=== PATIENT | female | born 1975 | race Caucasian/White ===

== ENCOUNTER → 2018-07-10 12:43 | Outpatient (CLI) | payer OTHER, SELFPAY ==
--- NOTE | 2018-07-10 | DI.MRI.S_ITS ---
PROCEDURE: MR CERVICAL SPINE WO/W CON INDICATIONS: PAIN IN RIGHT SHOULDER TECHNIQUE: Noncontrast sagittal T1 spin echo and T2 fast spin echo, sagittal STIR, foraminal oblique sagittal T2 fast spin echo, axial gradient echo or T2 fast spin echo through the cervical spine. After the administration of contrast, axial and sagittal T1 spin echo with fat saturation through the cervical spine. COMPARISON: None. FINDINGS: Image quality: Excellent. Alignment and curvature: There is normal bony alignment. Marrow: Marrow is normal in overall signal, without suspicious enhancement. Spinal cord: Visualized spinal cord has normal size and signal. No cerebellar tonsillar herniation. No abnormal intramedullary enhancement. Paraspinous soft tissues: No paravertebral masses or suspicious enhancement. C2-3: Loss of the signal. Minimal, diffuse disc bulge. No central stenosis. No neural foraminal narrowing. No neural impingement. C3-4: Loss of the signal. Mild, diffuse disc bulge. No central stenosis. No neural foraminal narrowing. No neural impingement. C4-5: Loss of disc signal. Mild, diffuse disc bulge. No central stenosis. No neural foraminal narrowing. No neural impingement. C5-6: Loss of disc signal. Mild, diffuse disc bulge. Small left central disc protrusion. Mild narrowing of the central canal. No neural foraminal narrowing. No neural impingement. Focal high intensity zone is noted in the left central posterior annulus compatible with a fissure. C6-7: Normal appearance. C7-T1: Normal appearance. IMPRESSION: 1. Mild multilevel degenerative disc disease. 2. Small left central C5-C6 disc protrusion. 3. Mild C5-C6 central canal narrowing. 4. No neural foraminal narrowing. 5. No neural impingement. 6. C5-C6 disc annulus fissure. Dictated by: Kitty Fam MD, PhD on 07/10/2018 at 17:37 Approved by: Kitty Fam MD, PhD on 07/10/2018 at 17:40
--- NOTE | 2018-07-10 | DI.MRI.S_ITS ---
PROCEDURE: MR SHOULDER RT WO/W CON INDICATIONS: PAIN IN RIGHT SHOULDER TECHNIQUE: Noncontrast oblique coronal T1 spin echo and T2 fast spin echo with fat saturation, oblique sagittal T1 spin echo and T2 fast spin echo with fat saturation, axial T1 spin echo and T2 fast spin echo with fat saturation through the shoulder. Post-contrast oblique coronal, oblique sagittal, and axial T1 spin echo with fat saturation through the shoulder. COMPARISON: None. FINDINGS: Image quality: Diagnostic. Rotator cuff: There is no full-thickness or high-grade partial-thickness tear of the rotator cuff. However, there is mild tendinopathy at the junction of the supraspinatus and infraspinatus tendons without significant partial-thickness tearing. The teres minor and subscapularis tendons are intact. There is no significant atrophy of the rotator cuff muscles. Bones and bursae: No acute fracture, dislocation, or suspicious osseous lesion is identified involving the osseous structures of the right shoulder. There is no suspicious enhancement of the bone. No significant degenerative changes of the glenohumeral joint is present. There is no glenohumeral joint effusion. There are mild degenerative changes of the acromio clavicular joint with downsloping of the lateral acromion. No significant fluid is contained within the subacromial subdeltoid bursa. However, there is thickening of the bursa. Capsule and soft tissues: Evaluation of the labrum and the glenohumeral ligaments is difficult without intra-articular contrast. No acute injuries are suspected involving the glenohumeral ligaments. A small tear along the posterosuperior labrum is suspected extending from the 12 o'clock position to the 2 o'clock position. No detached labral fragment or large paralabral cysts are evident. The long head of the biceps tendon is normally positioned within the bicipital groove and is otherwise intact and unremarkable. No suspicious soft tissue enhancement or soft tissue masses are evident. No fluid collections are evident, either. IMPRESSION: 1. Mild supraspinatus and infraspinatus tendinopathy without significant tearing. 2. Mild degenerative changes of the acromioclavicular joint. 3. Small posterosuperior labral tear suspected to the knee for better characterization utilizing MR arthrography may be determined clinically. 4. No suspicious areas of soft tissue or bony enhancement. There are no soft tissue or bony masses. Dictated by: Toby Zhu M.D. on 07/10/2018 at 15:09 Approved by: Toby Zhu M.D. on 07/10/2018 at 15:15
== END ==
PROVIDERS: PCP Family Medicine; Visit Provider Family Medicine
DX: M25.511 Pain in right shoulder (principal); M19.011 Primary osteoarthritis, right shoulder; M50.31 Other cervical disc degeneration, high cervical region; M50.222 Other cervical disc displacement at C5-C6 level; M48.02 Spinal stenosis, cervical region
CPT/HCPCS: 72156; 73223; A9579

== ENCOUNTER → 2018-09-27 18:56 | Outpatient (CLI) | payer OTHER, SELFPAY ==
--- NOTE | 2018-09-27 18:58 | DI.MRI.S_ITS ---
PROCEDURE: MR HEAD/BRAIN WO CON INDICATIONS: VISUAL DISTURBANCES TECHNIQUE: Noncontrast axial T1 spin echo, axial T2 fast spin echo, sagittal and axial FLAIR, coronal T2 fast spin echo, axial gradient echo, axial diffusion and ADC through the brain. COMPARISON: None. FINDINGS: Image quality: Excellent. CSF Spaces: Basal cisterns are patent. No extra-axial fluid collections. Ventricles are normal in size and shape. Brain: No intracranial masses or hemorrhage. Tsai/white matter interface is normal. Brainstem appears normal. Diffusion-weighted images demonstrate no acute ischemic insult. No chronic ischemic insults. Normal intravascular flow voids are present. Skull and face: Calvarium has normal marrow signal. Orbits appear normal. Sinuses: Sinuses and mastoids are clear. IMPRESSION: No acute process. No explanation for visual disturbance. No recent infarct. Dictated by: Suzan Gao M.D. on 09/30/2018 at 8:35 Approved by: Suzan Gao M.D. on 09/30/2018 at 8:37
== END ==
PROVIDERS: PCP Family Medicine; Visit Provider General Practice
DX: H53.9 Unspecified visual disturbance (principal)
CPT/HCPCS: 70551

== ENCOUNTER 2020-11-24 16:45 | Emergency (ER) | payer OTHER, SELFPAY ==
[2020-11-24 17:11] VITALS: BP 132/80; PULSE 120; RESP 18; TEMP 37.1; O2SAT 99
[2020-11-24 18:15] LABS: Add Manual Diff / Slide Review NO; Basophils Absolute Auto 0 /uL (0-100); Basophils Percent Auto 0.4 % (0-2); Eosinophils Absolute Auto 100 /uL (0-450); Eosinophils Percent Auto 1.3 % (2-4); Hematocrit 41.7 % (36-46); Hemoglobin 14.3 g/dL (12.0-16.0); Lymphocytes Absolute Auto 1300 /uL (1100-4500); Lymphocytes Percent Auto 16.9 % (25-40); Mean Corpuscular HGB Conc 34.2 % (30-36); Mean Corpuscular Hemoglobin 29.7 PG (26-34); Monocytes Absolute Auto 500 /uL (0-900); Neutrophils Absolute Auto 5900 /uL (1500-7000); Neutrophils Percent Auto 75.4 % (50-75); Platelet Count 152 X10^3/uL (150-400); Red Cell Distribution Width 12.7 % (11.6-14.8); White Blood Cell Count 7.8 X10^3/uL (4.5-11.0)
[2020-11-24 18:31] LABS: Creatine Kinase 57 U/L (30-135)
[2020-11-24 18:33] LABS: Alanine Aminotransferase 17 IU/L (<35); Albumin 4.5 g/dL (3.5-5.0); Albumin Globulin Ratio 1.4 (1.0-2.8); Alkaline Phosphatase 53 U/L (38-126); Aspartate Aminotransferase 27 IU/L (14-36); BUN Creatinine Ratio 16.7 (6-22); Bilirubin Total 0.6 mg/dL (0.2-1.3); Blood Urea Nitrogen 11 mg/dL (7-17); Calcium 9.5 mg/dL (8.4-10.2); Carbon Dioxide 25 mmol/L (22-32); Chloride 104 mmol/L (98-107); Estimated Glomerular Filt Rate > 60.0 mL/min (>60); Globulin 3.2 g/dL (1.7-4.1); Glucose 96 mg/dL (70-100); HEMOLYSIS < 15 (0-50); Lipase 74 U/L (23-300); Potassium 4.2 mmol/L (3.4-5.1); Sodium 137 mmol/L (137-145); Total Protein 7.7 g/dL (6.3-8.2)
[2020-11-24 18:44] LABS: Troponin I < 0.012 ng/mL (0.01-0.034)
--- NOTE | 2020-11-24 19:29 | DI.CT.S_ITS ---
PROCEDURE: CT ABDOMEN PELVIS W CON INDICATIONS: LUQ pain hx of speenic cyst TECHNIQUE: After the administration of intravenous contrast, axial sections acquired from the lung bases to the pubic symphysis. Coronal and sagittal reformats were performed. For radiation dose reduction, the following was used: automated exposure control, adjustment of mA and/or kV according to patient size. COMPARISON: None. FINDINGS: Image quality: Excellent. Lung bases: Unremarkable. Heart: No significant findings. ABDOMEN: Liver: Unremarkable. Gallbladder: Unremarkable. Biliary ducts: Unremarkable. Pancreas: Unremarkable. Spleen: The spleen contains numerous small and large splenic cysts, several of which have thin bands of calcification along their borders. No hemorrhage into a cyst is found. Adrenal Glands: Unremarkable. Kidneys and Ureters: Unremarkable. Stomach and Bowel: Stomach, small bowel loops, and colon are unremarkable. Peritoneum: No abnormal intraperitoneal fluid. No free air. Ventral Wall: No hernias. Abdominal Nodes: No retroperitoneal or mesenteric adenopathy by size criteria. Vessels: Aorta and inferior vena cava are normal in size. PELVIS: Pelvic Organs: Unremarkable. Bladder: Unremarkable. Pelvic Nodes: No enlarged lymph nodes. Miscellaneous: No hernias are seen. Bones: Unremarkable. IMPRESSION: Etiology of left upper quadrant pain is not identified. Numerous chronic splenic cysts are present, ranging in size from several mm to 8.8 cm. A comparison study is not available for review to establish waste/materials exchange specialist time. Given the current symptomatology and indicated history of knowledge of the splenic cyst it is strongly recommended that the patient obtain the comparison prior CT or MR scanning for review so that chronicity of the abnormalities can be further documented and any change that would indicate presence of infection or neoplasm could be identified. Dictated by: Michael Jones M.D. on 11/24/2020 at 20:13 Approved by: Michael Jones M.D. on 11/24/2020 at 20:16
--- NOTE | 2020-11-24 19:35 | ED_ITS ---
HPI - General Adult General Chief complaint: Abdominal Pain Stated complaint: LUQ pain Time Seen by Provider: 11/24/20 19:34 Source: patient Mode of arrival: Ambulatory History of Present Illness HPI narrative: Patient is a 45-year-old female with a history of a splenic cyst that has required surgical intervention in the past. This was a couple years ago that this occurred. She states that over the past several weeks/months she has had increasing discomfort to her left upper abdomen which feels very similar to when she was diagnosed with a cyst. She states that last evening that discomfort became much worse and she was concerned that the cyst was back. Related Data Home Medications Medication Instructions Recorded Confirmed No Known Home Medications 11/24/20 11/24/20 Allergies Allergy/AdvReac Type Severity Reaction Status Date / Time latex [LATEX] Allergy Intermediate RASH, Verified 11/24/20 17:13 SWELLING copper [COPPER] Allergy Unknown RASH Verified 11/24/20 17:13 Penicillins [PENICILLINS] Allergy Unknown RASH Verified 11/24/20 17:13 Review of Systems Constitutional Constitutional: Denies headache(s) ENT Ears, Nose, Mouth, and Throat: Denies headache(s) Cardiovascular Cardiovascular: Denies chest pain Respiratory Respiratory: Denies system reviewed and no additional complaints, except as documented Gastrointestinal Gastrointestinal: Reports system reviewed and no additional complaints, except as documented, Denies change in bowel habits and Denies vomiting Genitourinary Genitourinary: Denies dysuria Musculoskeletal Musculoskeletal: Reports system reviewed and no additional complaints, except as documented Integumentary/Breasts Skin/Breast: Reports system reviewed and no additional complaints, except as documented Neurologic Neurologic: Denies headache(s) Psychiatric Psychiatric: Reports system reviewed and no additional complaints, except as documented Endocrine Endocrine: Reports system reviewed and no additional complaints, except as documented Hematologic/Lymphatic On Anticoagulants: No Allergic/Immunologic Allergic/Immunologic: Reports system reviewed and no additional complaints, except as documented Patient History Medical History Splenic cyst Social History Smoking Status: Never smoker Smoking Status: Never smoker alcohol intake frequency: holidays/special occasions only Substance Use Type: does not use Exam Initial Vital Signs Initial Vital Signs: Vital Signs Temperature 98.7 F 11/24/20 17:11 Pulse Rate 120 H 11/24/20 17:11 Respiratory Rate 18 11/24/20 17:11 Blood Pressure 132/80 11/24/20 17:11 Pulse Oximetry 99 11/24/20 17:11 Const General: cooperative, healthy appearing, comfortable and well developed [facility] Head: normal to inspection and normocephalic Eyes General: appearance normal, both eyes and all related structures Neck Neck: normal visual inspection Resp Effort & Inspection: normal respiratory effort Cardio Rate: regular rate GI Inspection: normal to inspection and non-distended Palpation: No firm, No mass and tender (Left upper quadrant) Back/Spine/Pelvis Back: normal to inspection Skin General: no rashes or lesions noted Neuro General: patient alert, patient awake and patient oriented x3 Extrem General: normal to inspection Psych Appearance: grossly normal and well kempt Course Orders Ordered: ED Orders 11/24/20 18:00 Complete Blood Count AUTO DIFF Stat Comprehensive Metabolic Panel Stat Lipase Stat Troponin & CK Cardiac Panel Stat 11/24/20 19:29 CT abdomen pelvis w con Stat Vital Signs Vital signs: Vital Signs - 8 hr 11/24/20 20:32 11/24/20 20:35 Pulse Rate 73 75 Respiratory Rate 32 H 16 Blood Pressure 115/75 Pulse Oximetry 100 Medical Decision Making Lab Data Lab results reviewed: Yes I reviewed the patient's lab results. Result diagrams: 11/24/20 18:00 11/24/20 18:00 Labs: Lab Results 11/24/20 11/24/20 11/24/20 Range/Units 18:00 18:00 18:00 WBC 7.8 (4.5-11.0) X10^3/uL RBC 4.80 (4.0-5.2) X10^6/uL Hgb 14.3 (12.0-16.0) g/dL Hct 41.7 (36-46) % MCV 87.0 (80-100) fL MCH 29.7 (26-34) PG MCHC 34.2 (30-36) % RDW 12.7 (11.6-14.8) % Plt Count 152 (150-400) X10^3/uL Neut % (Auto) 75.4 H (50-75) % Lymph % (Auto) 16.9 L (25-40) % [place] % (Auto) 6.0 (3-14) % Eos % (Auto) 1.3 L (2-4) % Baso % (Auto) 0.4 (0-2) % Neut # (Auto) 5900 (1591-3400) /uL Lymph # (Auto) 1300 (9726-0508) /uL [place] # (Auto) 500 (0-900) /uL Eos # (Auto) 100 (0-450) /uL Baso # (Auto) 0 (0-100) /uL Sodium 137 (137-145) mmol/L Potassium 4.2 (3.4-5.1) mmol/L Chloride 104 (98-107) mmol/L Carbon Dioxide 25 (22-32) mmol/L BUN 11 (7-17) mg/dL Creatinine 0.66 (0.52-1.04) mg/dL Estimated GFR > 60.0 (>60) mL/min BUN/Creatinine Ratio 16.7 (6-22) Glucose 96 (70-100) mg/dL Calcium 9.5 (8.4-10.2) mg/dL Total Bilirubin 0.6 (0.2-1.3) mg/dL AST 27 (14-36) IU/L ALT 17 (<35) IU/L Alkaline Phosphatase 53 (38-126) U/L Total Creatine Kinase 57 (30-135) U/L CK-MB (CK-2) TNP CK-MB (CK-2) Rel Index TNP Troponin I < 0.012 (0.01-0.034) ng/mL Total Protein 7.7 (6.3-8.2) g/dL Albumin 4.5 (3.5-5.0) g/dL Globulin 3.2 (1.7-4.1) g/dL Albumin/Globulin Ratio 1.4 (1.0-2.8) Lipase 74 (23-300) U/L Imaging Data CT scan - abdomen/pelvis: Radiologist's Impression: [address] [id number] Scan ReportSigned Patient: Zuleika Medeiros EMR#: [id number]: [id number]:[id number]/Sex: 45 / FDate of Service: 11/24/20Loc: EDAccession Number: [id number] Procedure: CT abdomen pelvis w con Ordering Provider: Ramandeep Reza D.O. PROCEDURE: CT ABDOMEN PELVIS W CON INDICATIONS: LUQ pain hx of speenic cyst TECHNIQUE: After the administration of intravenous contrast, axial sections acquired from the lung bases to the pubic symphysis. Coronal and sagittal reformats were performed. For radiation dose reduction, the following was used: automated exposure control, adjustment of mA and/or kV according to patient size. COMPARISON: None. FINDINGS: Image quality: Excellent. Lung bases: Unremarkable. Heart: No significant findings. ABDOMEN: Liver: Unremarkable. Gallbladder: Unremarkable. Biliary ducts: Unremarkable. Pancreas: Unremarkable. Spleen: The spleen contains numerous small and large splenic cysts, several of which have thin bands of calcification along their borders. No hemorrhage into a cyst is found. Adrenal Glands: Unremarkable. Kidneys and Ureters: Unremarkable. Stomach and Bowel: Stomach, small bowel loops, and colon are unremarkable. Peritoneum: No abnormal intraperitoneal fluid. No free air. Ventral Wall: No hernias. Abdominal Nodes: No retroperitoneal or mesenteric adenopathy by size criteria. Vessels: Aorta and inferior vena cava are normal in size. PELVIS: Pelvic Organs: Unremarkable. Bladder: Unremarkable. Pelvic Nodes: No enlarged lymph nodes. Miscellaneous: No hernias are seen. Bones: Unremarkable. IMPRESSION: Etiology of left upper quadrant pain is not identified. Numerous chronic splenic cysts are present, ranging in size from several mm to 8.8 cm. A comparison study is not available for review to establish belt changer time. Given the current symptomatology and indicated history of knowledge of the splenic cyst it is strongly recommended that the patient obtain the comparison prior CT or MR scanning for review so that chronicity of the abnormalities can be further documented and any change that would indicate presence of infection or neoplasm could be identified. Dictated by: Michael Jones M.D. on 11/24/2020 at 20:13 Approved by: Michael Jones M.D. on 11/24/2020 at 20:16 ECG Data Attestation: I personally reviewed and interpreted this ECG as follows: Interpretation: Sinus rhythm Ventricular rate 98 Sinus arrhythmia Normal MN interval Normal QRS Normal QTC No ST T wave changes MDM Narrative Medical decision making narrative: Labs are unremarkable, EKG is unremarkable, CT scan shows multiple splenic cysts. Unsure if this is the cause of her discomfort however that is the potential given her history. I feel that no surgical intervention is needed today. I did discuss the CT scan with her and liver contact her primary doctor to discuss further workup in any specialist referrals. She was given return precautions and follow-up instructions. She expressed understanding and agreement. Discharge Plan Departure Patient Disposition: Home Clinical Impression: Cyst of spleen, Abdominal pain Instructions: DI for Abdominal Pain-Adult Activity Restrictions/Additional Instructions: I do recommend that you contact your primary doctor about the cysts that were seen on the CT scan today. Your most likely going to do need follow-up scans to continue to evaluate for potential growth. The rest of your labs in the rest of the CT scan were unremarkable. No restrictions on your diet. Please return to the emergency department for any new or worsening symptoms. Prescriptions: No Action No Known Home Medications RF: 0 Referrals: Bev Moreno MD [Primary Care Provider] -
[2020-11-24 20:32] VITALS: PULSE 73; RESP 32
[2020-11-24 20:35] VITALS: BP 115/75; PULSE 75; RESP 16; O2SAT 100
== END 2020-11-24 20:59 | disposition home or self-care (01) ==
PROVIDERS: Emergency Medicine; Emergency Provider Emergency Medicine; PCP Family Medicine
DX: D73.4 Cyst of spleen (principal); R10.12 Left upper quadrant pain
CPT/HCPCS: 36415; 74177; 80053; 82550; 83690; 84484; 85025; 93005; 99283; 99284

== ENCOUNTER 2020-11-26 15:32 | Emergency (ER) | payer OTHER, SELFPAY ==
[2020-11-26] VITALS (11 sets, daily range): BP systolic 101–111; BP diastolic 60–68; PULSE 67–91; RESP 16–18; TEMP 37.1; O2SAT 97–100; BMI 23.6
--- NOTE | 2020-11-26 16:04 | DI.CT.S_ITS ---
PROCEDURE: CT ABDOMEN PELVIS W CON INDICATIONS: Pain LUQ , h/o splenic cysts, worsening pain. TECHNIQUE: After the administration of intravenous contrast, axial sections acquired from the lung bases to the pubic symphysis. Coronal and sagittal reformats were performed. For radiation dose reduction, the following was used: automated exposure control, adjustment of mA and/or kV according to patient size. COMPARISON: [facility], CT, CT ABDOMEN PELVIS W CON, 11/24/2020, 19:38. FINDINGS: Image quality: Excellent. Lung bases: Unremarkable. Heart: No significant findings. ABDOMEN: Liver: There is hypoattenuation of the liver consistent with fatty infiltration with focal fatty infiltration noted in the anterior left hepatic lobe. Gallbladder: Unremarkable. Biliary ducts: Unremarkable. Pancreas: Unremarkable. Spleen: The spleen is enlarged, measuring approximately 12.5 x 11.5 x 7.6 cm. Numerous splenic cysts are redemonstrated, similar in size to the recent CT. These include a large cyst superiorly in the spleen measuring up to 8.2 x 6.5 x 7.0 cm with small foci of calcifications along the cyst wall. A lobulated cyst more inferiorly within the spleen measures up to 7.9 x 5.9 x 7.1 cm. Numerous additional smaller cysts are also demonstrated more superiorly within the spleen. No definite solid mass is identified but evaluation of the smaller cysts is limited due to their sizes. Adrenal Glands: Unremarkable. Kidneys and Ureters: Unremarkable. Stomach and Bowel: Stomach, small bowel loops, and colon are unremarkable. There is a small amount of free fluid in the pelvis which is nonspecific and appears within physiologic limits Peritoneum: No abnormal intraperitoneal fluid. No free air. Ventral Wall: No hernias. Abdominal Nodes: No retroperitoneal or mesenteric adenopathy by size criteria. Vessels: Aorta and inferior vena cava are normal in size. PELVIS: Pelvic Organs: The uterus is surgically absent. Ovaries appear within normal size limits. There is a peripherally enhancing cyst within the left ovary measuring up to 1.8 cm likely representing a physiologic cyst. Bladder: Unremarkable. Pelvic Nodes: No enlarged lymph nodes. Miscellaneous: No hernias are seen. Bones: Unremarkable. IMPRESSION: 1. Multiple splenic cysts appears similar in size to the recent prior study. These include a peripherally calcified large cyst superiorly within the spleen. The findings are nonspecific but suggestive of possible hydatid cysts related to prior infection. The differential includes splenic neoplasms although these are considered less likely. Recommend correlation clinically. Dictated by: Mina Issa M.D. on 11/26/2020 at 17:08 Approved by: Mina Issa M.D. on 11/26/2020 at 17:15
[2020-11-26 16:36] LABS: Add Manual Diff / Slide Review NO; Basophils Absolute Auto 0 /uL (0-100); Basophils Percent Auto 0.6 % (0-2); Eosinophils Absolute Auto 200 /uL (0-450); Eosinophils Percent Auto 3.7 % (2-4); Hematocrit 39.3 % (36-46); Lymphocytes Absolute Auto 1400 /uL (1100-4500); Lymphocytes Percent Auto 24.2 % (25-40); Mean Corpuscular HGB Conc 33.1 % (30-36); Mean Corpuscular Volume 87.7 fL (80-100); Monocytes Absolute Auto 400 /uL (0-900); Neutrophils Absolute Auto 3800 /uL (1500-7000); Neutrophils Percent Auto 64.5 % (50-75); Platelet Count 156 X10^3/uL (150-400); Red Blood Cell Count 4.48 X10^6/uL (4.0-5.2); Red Cell Distribution Width 12.6 % (11.6-14.8); White Blood Cell Count 5.9 X10^3/uL (4.5-11.0)
[2020-11-26 16:44] LABS: Alanine Aminotransferase 16 IU/L (<35); Albumin 4.5 g/dL (3.5-5.0); Albumin Globulin Ratio 1.5 (1.0-2.8); Alkaline Phosphatase 48 U/L (38-126); Aspartate Aminotransferase 25 IU/L (14-36); Bilirubin Total 0.6 mg/dL (0.2-1.3); Blood Urea Nitrogen 11 mg/dL (7-17); Calcium 9.3 mg/dL (8.4-10.2); Carbon Dioxide 24 mmol/L (22-32); Chloride 105 mmol/L (98-107); Estimated Glomerular Filt Rate > 60.0 mL/min (>60); Globulin 3.1 g/dL (1.7-4.1); Glucose 96 mg/dL (70-100); HEMOLYSIS 26 (0-50); Lipase 99 U/L (23-300); Potassium 4.1 mmol/L (3.4-5.1); Sodium 137 mmol/L (137-145); Total Protein 7.6 g/dL (6.3-8.2)
--- NOTE | 2020-11-26 18:08 | ED_ITS ---
HPI - Abdominal Pain General Chief Complaint: Abdominal Pain Stated Complaint: spleen has cyst on it, pain with breathing Time Seen by Provider: 11/26/20 18:01 Source: patient Mode of arrival: Family Vehicle Limitations: no limitations History of Present Illness HPI narrative: 45-year-old female nonsmoker with history of spleen CIS returns for repeat evaluation of persistent pain. She initially had symptoms consisting abdominal pain with some nausea in 2005 and the workup demonstrated a large splenic cyst and she was treated by surgical Oncology at the [facility] and she reports 2 L of fluid was drained. She started developing left upper quadrant and flank pain a few days ago and this reminded her of prior episode of splenic cyst. She has significantly worsening pain with motion and improvement with rest. She states that sharp and stabbing and at times it 10/10. She was seen and evaluated a few days ago here and had a CT which noted a redemonstration of the cyst, patient was given pain meds and encouraged to follow up. She returns, stating that the symptoms are no worse but they are certainly not better and is affecting her ability to function at home. Related Data Home Medications Medication Instructions Recorded Confirmed No Known Home Medications 11/24/20 11/24/20 Allergies Allergy/AdvReac Type Severity Reaction Status Date / Time latex [LATEX] Allergy Intermediate RASH, Verified 11/26/20 15:54 SWELLING copper [COPPER] Allergy Unknown RASH Verified 11/26/20 15:54 Penicillins [PENICILLINS] Allergy Unknown RASH Verified 11/26/20 15:54 Review of Systems Constitutional Constitutional: Denies chills, Denies fatigue, Denies fever(s), Denies frequent falls, Denies lethargy and Denies weakness Eyes Eyes: Denies change in vision, Denies eye discharge, Denies irritation and Denies loss of vision ENT Ears, Nose, Mouth, and Throat: Denies change in voice, Denies dizziness, Denies neck pain, Denies sore throat and Denies throat swelling Cardiovascular Cardiovascular: Denies chest pain, Denies irregular heart rhythm, Denies lightheadedness, Denies palpitations, Denies dyspnea, Denies dyspnea on exertion and Denies orthopnea Respiratory Respiratory: Denies cough, Denies dyspnea, Denies dyspnea on exertion and Denies wheezing Gastrointestinal Gastrointestinal: Reports as per HPI, Reports abdominal pain, Denies change in bowel habits, Denies diarrhea, Denies nausea and Denies vomiting Musculoskeletal Musculoskeletal: Denies neck pain and Denies numbness Integumentary/Breasts Skin/Breast: Denies pruritus, Denies erythema, Denies rash and Denies wounds Neurologic Neurologic: Denies behavioral changes, Denies confusion, Denies dizziness, Denies frequent falls, Denies loss of vision, Denies numbness and Denies weakness Psychiatric Psychiatric: Denies anxiety, Denies behavioral changes, Denies confusion, Denies depression, Denies homicidal ideation and Denies suicidal ideation Endocrine Endocrine: Denies fatigue, Denies flushing and Denies palpitations Hematologic/Lymphatic Hematologic/Lymphatic: Denies easy bruising Allergic/Immunologic Allergic/Immunologic: Denies urticaria, Denies throat swelling and Denies wheezing Patient History Medical History Splenic cyst Social History Smoking Status: Never smoker Smoking Status: Never smoker alcohol intake frequency: holidays/special occasions only Substance Use Type: does not use Exam Narrative Exam Narrative: GENERAL: [45] year old patient appears stated age. Well- developed patient, in obvious distress, rubbing her upper abdomen, anxious and tearful HEAD: Atraumatic. Normocephalic. EYES: Pupils equal round and reactive. Extraocular motions intact. No scleral icterus. No injection or drainage. ENT: Nose without bleeding, purulent drainage. Throat without erythema, tonsillar hypertrophy or exudate. Airway patent. NECK: Trachea midline. Non tender CARDIOVASCULAR: Regular rate and rhythm without murmurs, gallops, or rubs. RESPIRATORY: Clear to auscultation. Breath sounds equal bilaterally. No wheezes, rales, or rhonchi. GASTROINTESTINAL: Abdomen soft, tender in the left upper quadrant, nondistended. Bowel sounds present in all 4 quadrants EXTREMITIES: No edema or joint tenderness. BACK: Nontender without deformity or crepitance. No flank tenderness. NEURO: AOx3. SKIN: No rash or erythema of visible areas Initial Vital Signs Initial Vital Signs: Vital Signs Temperature 98.7 F 11/26/20 15:54 Pulse Rate 91 H 11/26/20 15:54 Respiratory Rate 18 11/26/20 15:54 Blood Pressure 109/68 11/26/20 15:54 Pulse Oximetry 99 11/26/20 15:54 Course Orders Ordered: Discontinued Medications Sodium Chloride (Normal Saline 0.9%) 1,000 mls @ 1,000 mls/hr IV BOLUS ONE Stop: 11/26/20 22:22 Last Infusion: 11/26/20 23:37 Dose: 0 mls/hr Documented by: Admin: 11/26/20 21:31 Dose: 1,000 mls/hr Documented by: ALEKSANDRA Consultations Consultation #1: Discussion with Dr. Delgado (general surgery). We have reviewed the case including images, labs and history and recommendation is to reassure, pain control, return precautions and follow-up with his office as planned Consultation #2: Call to surgical services at [facility]. They have reviewed images, history and have very similar recommendations as above. No indication for transfer, urgent or emergent procedure. Return precautions, follow-up. They took patient's information and will related to scheduling to get her seen sooner rather than later Vital Signs Vital signs: Vital Signs - 8 hr 11/26/20 21:31 11/26/20 23:42 Pulse Rate 77 68 Respiratory Rate 16 18 Blood Pressure 103/60 104/60 Pulse Oximetry 97 98 MDM - Abdominal Pain Lab Data Result diagrams: 11/26/20 16:24 11/26/20 16:24 Labs: Lab Results 11/26/20 11/26/20 Range/Units 16:24 16:24 WBC 5.9 (4.5-11.0) X10^3/uL RBC 4.48 (4.0-5.2) X10^6/uL Hgb 13.0 (12.0-16.0) g/dL Hct 39.3 (36-46) % MCV 87.7 (80-100) fL MCH 29.0 (26-34) PG MCHC 33.1 (30-36) % RDW 12.6 (11.6-14.8) % Plt Count 156 (150-400) X10^3/uL Neut % (Auto) 64.5 (50-75) % Lymph % (Auto) 24.2 L (25-40) % [place] % (Auto) 7.0 (3-14) % Eos % (Auto) 3.7 (2-4) % Baso % (Auto) 0.6 (0-2) % Neut # (Auto) 3800 (0527-9621) /uL Lymph # (Auto) 1400 (2360-1015) /uL [place] # (Auto) 400 (0-900) /uL Eos # (Auto) 200 (0-450) /uL Baso # (Auto) 0 (0-100) /uL Sodium 137 (137-145) mmol/L Potassium 4.1 (3.4-5.1) mmol/L Chloride 105 (98-107) mmol/L Carbon Dioxide 24 (22-32) mmol/L BUN 11 (7-17) mg/dL Creatinine 0.61 (0.52-1.04) mg/dL Estimated GFR > 60.0 (>60) mL/min BUN/Creatinine Ratio 18.0 (6-22) Glucose 96 (70-100) mg/dL Calcium 9.3 (8.4-10.2) mg/dL Total Bilirubin 0.6 (0.2-1.3) mg/dL AST 25 (14-36) IU/L ALT 16 (<35) IU/L Alkaline Phosphatase 48 (38-126) U/L Total Protein 7.6 (6.3-8.2) g/dL Albumin 4.5 (3.5-5.0) g/dL Globulin 3.1 (1.7-4.1) g/dL Albumin/Globulin Ratio 1.5 (1.0-2.8) Lipase 99 (23-300) U/L Point of care testing: Point of Care Testing Test Results Negative Urine Dip Bedside Urine Glucose Negative Bedside Urine Bilirubin - Negative Bedside Urine Ketone + 15 Urine Specific [place] 1.025 Bedside Urine Occult Blood +/- Bedside Urine pH 6.0 Bedside Urine Protein - Negative Bedside Urine Urobilinogen - Negative Bedside Urine Nitrite - Negative Bedside Urine Leukocytes - Negative Esterase MDM Narrative Medical decision making narrative: Multiple etiologies for patient's symptoms considered including: [Spleen cyst versus infectious cause versus bowel obstruction versus other] Patient's symptoms slightly improved over duration of stay with above-stated therapies. No interval change in imaging, consultations with 2 surgeons and both suggest discharge, return precautions and follow-up Findings and discharge diagnosis discussed with patient/family followed by verbalization of understanding Return precautions discussed with patient/family whom verbalize understanding. Discharge Plan Departure Patient Disposition: Home Clinical Impression: Cyst of spleen Instructions: Acute Abdominal Pain Activity Restrictions/Additional Instructions: *You have been diagnosed with [abdominal pain from splenic cysts. Labs are very reassuring. CT scan shows no interval change from a few days ago. I have spoken with our on-call surgeon as well as the [facility] who has reviewed the case and images and agrees there is no immediate need for intervention and recommends pain control and nausea medications with follow-up.] *What to do: *Please continue to take your regular medications as directed. [ ] New medication prescriptions sent to your pharmacy: [ ] [ ] New medication written as a paper prescription [x ] No new medications given *Please follow up with your primary care provider in 2-3 days, call for an appointment. Let them know you were seen in the Emergency Department and that we ask that you be seen in follow up. We will electronically transmit a record of today's note if your PCP is in our system *If you do not have a primary care provider please contact the [facility] Resource line at [phone]. They will ask some questions about your medical history and help get you set up with a doctor in the community. *Return to Emergency Department if you should have any new, worsening or concerning symptoms, such as [fever greater than 101 F, shaking chills, worsening pain, persistent vomiting or other bothersome symptoms] Prescriptions: No Action No Known Home Medications RF: 0 Referrals: Bev Moreno MD [Primary Care Provider] -
[2020-11-26] MEDS: SODIUM CHLORIDE 0.9% 1,000 ML 1000 ML IV (21:31)
== END 2020-11-26 23:44 | disposition home or self-care (01) ==
PROVIDERS: Emergency Medicine; Emergency Provider Emergency Medicine; PCP Family Medicine
DX: D73.4 Cyst of spleen (principal)
CPT/HCPCS: 36415; 74177; 80053; 81003; 81025; 83690; 85025; 96360; 96361; 99284

== ENCOUNTER → 2020-12-01 09:35 | Outpatient (CLI) | payer OTHER, SELFPAY ==
[2020-12-01 10:51] LABS: COVID19 -Nasal RAPID Negative (Negative)
== END ==
PROVIDERS: PCP Family Medicine; Visit Provider Surgery
DX: Z20.822 Contact with and (suspected) exposure to COVID-19 (principal); D73.4 Cyst of spleen; Z68.24 Body mass index [BMI] 24.0-24.9, adult
CPT/HCPCS: 87635; 99214

== ENCOUNTER 2020-12-03 13:06 | Observation (INO) | payer OTHER, SELFPAY ==
[2020-12-02 07:42] VITALS: BMI 24.6
[2020-12-03] VITALS (16 sets, daily range): BP systolic 94–108; BP diastolic 52–69; PULSE 68–104; RESP 9–22; TEMP 35.7–36.2; O2SAT 95–100; BMI 24.6
--- NOTE | 2020-12-03 | PATH_ITS ---
[facility] Accession Number: [id number] . 01 Material submitted: . spleen - SPLEEN . 02 Diagnosis: Spleen, Splenectomy (Morcellated Specimen Weight 176 grams): Benign multiloculated mesothelial cyst by immunohistochemistry studies. V 12/09/2020 1554 Local . 02 Comment: As part of routine quality control microbiologist, Drs. Wynn and Paige also reviewed this case and agree with the diagnosis. . 02 Electronically signed: . Kerri Ambriz MD, Pathologist NPI- [id number] . 01 Gross description: . Received in formalin, labeled spleen, is a 176 g, 14.5 x 13.7 x 4.2 cm aggregate of morcellated, ragged, espinosa-brown to yellow-jack, focally hemorrhagic soft tissue fragments. A blue-espinosa, smooth, glistening capsule is identified with focal areas of yellow-jack discoloration. Approximately 50% of the fragments are surrounded by yellow-jack, smooth, glistening, rubbery membranes that average 0.3 cm in thickness. The membranes abut but do not grossly invade the parenchyma. Sectioning the parenchyma reveals spongy, red-brown, unremarkable cut surfaces. A 1.6 x 0.8 x 0.8 cm, cystic space is found filled with hemorrhagic contents. Palpation and dissection of the submitted fat reveals four espinosa-jack lymph node candidates ranging from 0.6 cm to 1.4 cm in greatest dimension. The remaining adipose tissue is unremarkable. Transfer Car Operator sections are submitted. . Summary of sections: A1-A3 = Capsular yellow-jack discoloration, one piece. A4-A7 = Yellow-jack, rubbery tissue to parenchyma, one piece. A8 = Transfer Car Operator yellow-jack, rubbery tissue, three pieces. A9-A12 = Transfer Car Operator spleen, two pieces. A13 = Cystic space, compliance representative, one piece. A14 = Uninvolved parenchyma, one piece. A15 = Two lymph nodes, one inked black and bisected, three pieces. A16 = Two intact lymph nodes, two pieces. A17 = Transfer Car Operator vasculature from adipose tissue, one piece. A18-A19 = Transfer Car Operator adipose tissue, two pieces. ([id number]) /FRR 12/04/2020 [facility] Local . 02 Microscopic: . An immunohistochemistry study is performed to evaluate the cells of interest on blocks A12 and A13. The control stain shows appropriate reactivity. . RESULTS: CD31: Negative in cells of interest. CD34: Negative in cells of interest. D2-40: Indeterminate. Calretinin: Positive in cells of interest. ROXANE: Positive in cells of interest. WT1: Positive in cells of interest. . The cells of interest are strongly immunopositive for ROXANE and demonstrate patchy immunopositivity for calretinin and WT-1. They are immunonegative for vascular / endothelial markers CD31 and CD34 and are indeterminate for D2-40. These immunohistochemistry findings support an interpretation of benign multiloculated mesothelial cyst and mitigate against an hemangioma / littoral cell angioma. . * This test was developed and its performance characteristics determined by [facility]. It has not been cleared or approved by the U.S. Food and Drug Administration. The FDA has determined that such clearance or approval is not necessary. This test is used for clinical purposes. It should not be regarded as investigational or for research. . 02 Pathologist provided ICD-10: D73.4 . 02 CPT . 229797, R69283, A47977 Performed at: 01 [facility] [address] [address], [place], [place] [id number] MD Mina Jauregui MD Phone: [phone] Performed at: [address] [facility] [id number] [place], [place] [id number] MD Emmanuelle Yan MD Phone: [phone]
[2020-12-03] MEDS: LACTATED RINGERS 1,000 ML 100 ML IV ×3 (14:12→19:19)
--- NOTE | 2020-12-03 14:42 | PM.PREOP ---
Pre-operative Note Interval Note History & Physical reviewed/Exam performed by Physician: Yes Changes to H&P: No
[2020-12-03] MEDS: levoFLOXacin 500 MG/100 ML PIGGYBACK 100 MG IV (14:50)
--- NOTE | 2020-12-03 15:28 | SUR.OPER ---
Lateral on padded OR bed, head on pillow, gel axillary roll in place, bottom leg bent with gel pad under knee to foot, upper leg straight and supported with pillows. Upper arm supported by pillows and secured over bottom arm to padded arm board. Safety belt at hip, tape over blanket lower legs.
[2020-12-03] MEDS: BUPIVACAINE 0.25% W/ EPI 30 ML VIAL INJ (15:59)
--- NOTE | 2020-12-03 16:07 | SUR.PREOP ---
Dr Veloz and Dr Delgado notified of contraindication of Ondasteron with Levaquin for potential prolonged QT syndrome
--- NOTE | 2020-12-03 19:33 | P.OP_ITS ---
Operative Date/Time/Diagnoses Date of procedure: 12/03/20 Time of procedure: 19:33 Pre-op diagnosis: Splenic cyst Post-op diagnosis: same Procedure & Clinicians Procedure: Laparoscopic splenectomy Same procedure as scheduled: Yes Indications: 45-year-old woman underwent a will laparoscopic splenic cyst fenestration previously we which demonstrated epithelial cyst. She has developed recurrent splenic cysts and is here for a splenectomy. Surgeon: Karl Delgado [facility]osp[facility] Clinical Manager: Anjum Main Anesthesia Type: General Operative Notes Findings: Multiple splenic cysts involving the both the inferior and superior pole. Extremely dense adhesions between the spleen and the diaphragm and the stomach. Specimen(s): other (Spleen) Estimated Blood Loss (mL): 150 Procedure in detail: Patient brought to the operating room placed supine on the table. Bilateral lower extremity compression devices were applied. General anesthesia was induced he was intubated with an endotracheal tube. She was then placed in to the left lateral decubitus position and appropriately padded with an axillary roll and duque bag. She received Levaquin prior to skin incision. She was prepped and draped in sterile fashion. Time-out was performed. A 12 mm incision was made in the midclavicular line in the left low lower quadrant. The fascia was elevated sharply incised and the abdomen was entered atraumatically. 12 mm balloon trocar was then placed into the abdomen and pneumoperitoneum was established. Additional ports were placed a 11 mm lateral to the 1st port and two 5 mm ports 1 above the left iliac crest in the other towards the midline. The spleen was notable for splenomegaly and multiple cysts primarily of the upper and lower poles. The lower cyst was approximately 8 cm and was percutaneously aspirated to facilitate the mobilization of the spleen There were extremely dense adhesions surrounding the entirety of the spleen likely as result of prior cyst fenestration. Beginning with the gastrosplenic ligament the lesser sac was entered. The short gastrics were divided carefully using the LigaSure. The splenic colic ligament was then incised which allowed us to a drop the transverse colon down and out of harm's way. There were very dense adhesions between the diaphragm and the top of the spleen that were sharply divided. The remaining splenic attachments were then divided and the spleen was then tethered entierly by its vascular pedicle. The pancreas was swept posteriorly and out of harm's way. The splenic hilum was then carefully skeletonized and the splenic artery and vein were divided close to the hilum using multiple loads of the Endo-VESTA 45 mm staple with vascular load. With the spleen completely mobile the LUQ was carefully inspected for hemostasis. Several liters of sterile water were used to irriagate the abdomen. An EGD was performed the stomach inflated and the greater curvature of the stomach was carefully inspected for leak and there was no evidence of bubbling. The spleen was then placed into an endocatch bag and was morcilized and extracted. The abdomen was then suctioned of all fluid and ports removed under direct visualization. The 11 mm ports were closed at the fascia with vircyl 0 skin closed with monocryl followed by dermabond. Extubated transfered to recovery room in stable condition. Complications: none Post-operative Condition: stable Disposition: Acute Care
[2020-12-03] MEDS: SODIUM CHLORIDE 0.9% 1,000 ML 125 ML IV (20:39)
[2020-12-03] MEDS: KETOROLAC 30 MG/ML VIAL IV (20:47)
[2020-12-03] MEDS: PROCHLORPERAZINE 10 MG/2 ML VIAL IV (22:11)
[2020-12-03] MEDS: MORPHINE 2 MG/ML INJ IV (22:19)
--- NOTE | 2020-12-03 23:07 | PC.NURSE ---
Admit/Evening Shift Note- Patient arrived to room via bed from PACU at 2024. Patient alert and oriented and able to make needs known to staff. Admit questions done, medications reviewed, physical assessment done, and skin check completed. 4 lap sites with durabond and steri-strips noted to abdomin. Patient given blanket to hold to abdoimn as needed for stabization with cough, sneeze, ext... Oriented patient to bed and bed controls, room ,lights, phone, menu, bathroom, and call hilario/tv remote. Safety measures in place. Patient agrees to call for assistance. Bed alarm activated. Call hilario and phone within reach. will continue to monitor.
[2020-12-04] MEDS: TRAMADOL 50 MG TABLET 100 MG PO ×2 (00:13→08:59)
[2020-12-04] MEDS: GABAPENTIN 300 MG CAPSULE PO ×2 (00:14→08:59)
[2020-12-04 03:00] VITALS: BP 112/58; PULSE 78; RESP 18; TEMP 36.8; O2SAT 100; O2SAT 98
[2020-12-04] MEDS: KETOROLAC 30 MG/ML VIAL IV ×2 (04:23→10:33)
[2020-12-04 05:38] LABS: Blood Urea Nitrogen 8 mg/dL (7-17); Calcium 8.4 mg/dL (8.4-10.2); Carbon Dioxide 22 mmol/L (22-32); Chloride 107 mmol/L (98-107); Estimated Glomerular Filt Rate > 60.0 mL/min (>60); Glucose 151 mg/dL (70-100); HEMOLYSIS < 15 (0-50); Phosphorous 2.7 mg/dL (2.5-4.5); Sodium 135 mmol/L (137-145)
[2020-12-04 05:41] LABS: Add Manual Diff / Slide Review NO; Basophils Absolute Auto 0 /uL (0-100); Basophils Percent Auto 0.1 % (0-2); Eosinophils Absolute Auto 0 /uL (0-450); Hematocrit 32.6 % (36-46); Hemoglobin 10.8 g/dL (12.0-16.0); Lymphocytes Absolute Auto 600 /uL (1100-4500); Lymphocytes Percent Auto 4.9 % (25-40); Mean Corpuscular HGB Conc 33.3 % (30-36); Mean Corpuscular Hemoglobin 29.1 PG (26-34); Mean Corpuscular Volume 87.3 fL (80-100); Monocytes Absolute Auto 800 /uL (0-900); Monocytes Percent Auto 6.1 % (3-14); Neutrophils Absolute Auto 11800 /uL (1500-7000); Neutrophils Percent Auto 88.9 % (50-75); Platelet Count 192 X10^3/uL (150-400); Red Blood Cell Count 3.73 X10^6/uL (4.0-5.2); Red Cell Distribution Width 12.4 % (11.6-14.8); White Blood Cell Count 13.2 X10^3/uL (4.5-11.0)
[2020-12-04 07:00] VITALS: BP 110/60; PULSE 82; RESP 18; TEMP 36.8; O2SAT 99
[2020-12-04] MEDS: OXYCODONE IR 5 MG TABLET PO ×2 (07:01→13:27)
[2020-12-04 07:57] VITALS: O2SAT 98
[2020-12-04] MEDS: ENOXAPARIN 40 MG/0.4 ML SYRINGE SUBCUT (09:00)
--- NOTE | 2020-12-04 10:19 | PC.NURSE ---
Day shift: Per Dr Delgado. Advance to reg diet. Oxycodone changed to Q3 hrs and IV fluids d/c'd. Pt can shower. Pt to d/c this afternoon. Pt aware of this plan. Will continue w/ plan of care.
[2020-12-04 10:52] VITALS: O2SAT 99
[2020-12-04 11:00] VITALS: BP 106/62; PULSE 81; RESP 18; TEMP 36.6; O2SAT 99
--- NOTE | 2020-12-04 11:03 | PM.PNPO.1 ---
Subjective Subjective Date Patient Seen: 12/04/20 Time Patient Seen: 11:03 Interval history: no major overnight events. Tolerating clear liquid diet ambulatory urinating pains controlled. Exam Vital Signs (past 8 hours): - 12/04/20 07:00 12/04/20 07:57 12/04/20 10:52 Temperature 98.2 F Pulse Rate 82 Respiratory Rate 18 Blood Pressure 110/60 Pulse Oximetry 99 98 99 Oxygen Delivery Method Room Air Oxygen Flow Rate 0 Narrative Exam Narrative: General adult female alert oriented no acute distress Abdomen soft appropriately tender to palpation incisions clean dry intact. Objective Labs Result Diagrams: 12/04/20 05:08 12/04/20 05:08 Labs: Laboratory Results - last 24 hr 12/03/20 12/04/20 12/04/20 14:30 05:08 05:08 WBC 13.2 H RBC 3.73 L Hgb 10.8 L Hct 32.6 L MCV 87.3 MCH 29.1 MCHC 33.3 RDW 12.4 Plt Count 192 Neut % (Auto) 88.9 H Lymph % (Auto) 4.9 L [place] % (Auto) 6.1 Eos % (Auto) 0.0 L Baso % (Auto) 0.1 Neut # (Auto) 14136 H Lymph # (Auto) 600 L [place] # (Auto) 800 Eos # (Auto) 0 Baso # (Auto) 0 Sodium 135 L Potassium 4.0 Chloride 107 Carbon Dioxide 22 BUN 8 Creatinine 0.57 Estimated GFR > 60.0 BUN/Creatinine Ratio 14.0 Glucose 151 H Calcium 8.4 Phosphorus 2.7 Magnesium 2.0 Blood Type O Positive Antibody Screen Negative [facility] Medical History Splenic cyst Surgical History (Updated 12/03/20 @ 14:43 by Shanna Mckenzie RN) History of hysterectomy Social History (System 12/02/20 @ 08:37 by Rosa Richards) marital status: household members: spouse and children lives independently: No caregiver/support person: No Smoking Status: Never smoker alcohol intake: current Assessment & Plan Post-op Postoperative Procedures: Procedures Operation Date: 12/03/20 14:15 Actual Procedure Side Surgeon p Laparoscopic Splenectomy Karl Delgado MD Postoperative status narrative: 45-year-old female postoperative day 1 status post laparoscopic splenectomy for recurrence splenic cysts doing well. Recovering from the operation appropriately no acute surgical concerns at this point. - Regular diet - DC IV fluids - discharge home - 2 week follow-up Quality VTE Deep Vein Thrombosis/Pulmonary Embolism Present on Admission: No
--- NOTE | 2020-12-04 12:25 | PT-IP ANOTE ---
Reviewed EMR. checked on pt and Dr. Delgado in room. Stated that pt will not need PT. Asked the doctor if he is going to d/c PT order and stated that he will. stated that pt is doing well and that he is going to d/c pt home today. Just checked doctor's order and PT pitoal is still active. will d/c PT order per doctor's order that pt does not need PT.
[2020-12-04] MEDS: ACETAMINOPHEN 325 MG TABLET 975 MG PO (13:27)
--- NOTE | 2020-12-04 13:31 | CM.DANOTE ---
Discharge Planning/Care Management Case received, EMR reviewed, d/c order notes. Checked in on pt and found her up, dressed, moving independently (tho slowly) about the room. She confirms she is feeling ready for d/c today and that her Tong is at the pharmacy getting her meds and then they will leave for home. Followup with Dr. Delgado planned for 2 weeks. Payer: [employer]. Advanced directive, confirm from FAMILY Start: 12/03/20 22:40 Freq: Q24H Status: Active Protocol: Document 12/03/20 22:40 AGW (Rec: 12/03/20 23:04 AGW [id number]) Advance Directive, confirm on record Time 22:00 Person contacted patient Copy received No CM Discharge Assessment Start: 12/04/20 13:31 Freq: Status: Active Protocol: Document 12/04/20 13:31 ITV (Rec: 12/04/20 13:31 ITV [id number]) Discharge Planning Assessment Advance Directives? Yes Advance Directives on File No History Provided By Patient,Medical Record Prior Living Arrangements House Household Members spouse,children Independent with ADL's Yes Is patient alert and oriented? Yes Discharge Plan Home Pre-Anesthesia Assessment Start: 12/02/20 07:42 Freq: Status: Complete Protocol: Document 12/02/20 07:42 CAB (Rec: 12/02/20 07:52 CAB [id number]) Pre-Anesthesia Assessment Patient Information Reviewed Via Chart Review Diagnostic Results BMP/CMP,CBC,EKG Comment Labs/EKG @ [facility], COVID screen @ [facility] 12/01/20 Negative Primary Care Provider Bev Moreno Seen Specialist in Last 12 Months Yes Specialist Seen General surgeon Primary Language Setswana Dial Buffer Required No Height 172.72 cm Weight 73.482 kg Body Mass Index (BMI) 24.6 Barriers to Learning None Anesthesia Review Requested No Etcher Apprentice Photoengraving No alcohol intake current alcohol intake frequency holidays/special occasions only Smoking Status Never smoker Substance Use Type does not use Pain Present Pain Reported History of Falling (Recent or History of No ) Patient is completely paralyzed or No completely immobile Mental Status Oriented to own ability Is patient on oxygen? No Hx Sleep Apnea No Currently Taking a Beta Joesph No Anti-Coagulant Therapy No Has a Dry Color Tester No Cardiac Testing No Hx Pacemaker/ICD No Pacemaker Rep Required? No Cardiac Clearance Received Not Applicable dysphagia No Gastrointestinal Symptoms Abdominal Pain Urinary Catheter Present No Hx Urinary Self Catheterization No Diabetes No Patient No Lactating No Marital Status Lives With spouse,children Patient Discharge Plan Description Return Home Advance Directives? No
--- NOTE | 2020-12-04 13:41 | PC.NURSE ---
Day shift: Paperwork signed and all questions answered. Pt has all personal belongings. scripts for Oxycodone sent electronic to Pt's pharmacy. The 4 lap sites CDI w/ no s/s of infection. Pain well controlled per JUL. Medicated per JUL for pain prior to car ride home. Taken to car (driven by her spouse) in WC by nursing. Pt stated I'm happy to be going home today. My pain is better. Pt has denies any nausea all day. Left unit at approx 1400.
== END 2020-12-04 14:30 | disposition home or self-care (01) ==
PROVIDERS: Admitting Provider Surgery; PCP Family Medicine; Referring Provider Surgery; Visit Provider Surgery
PROC: 07TP4ZZ Resection of Spleen, Percutaneous Endoscopic Approach (ICD-10-PCS; CPT 38120; principal; 2020-12-03 14:15)
DX: D73.4 Cyst of spleen (principal)
CPT/HCPCS: 38120; 36415; 80048; 83735; 84100; 85025; 86850; 86900; 86901; G0378; G0379; J0330; J0780; J1100; J1170; J1650; J1885; J1956; J2270; J2405; J2704; J3010

== ENCOUNTER → 2022-06-14 16:57 | Outpatient (CLI) | payer OTHER, SELFPAY ==
[2020-12-03 22:22] VITALS: BMI 24.6
== END ==
PROVIDERS: PCP Family Medicine; Referring Provider Internal Medicine Cardiovascular Disease; Visit Provider Internal Medicine Cardiovascular Disease
DX: Z90.81 Acquired absence of spleen (principal); R50.9 Fever, unspecified
CPT/HCPCS: 36415; 87040